=== PATIENT | male | born 1980 | race Two or more races ===

== ENCOUNTER 2017-08-09 10:51 | Outpatient (CLI) | payer OTHER | END 2017-08-09 11:09 | disposition home or self-care (01) | LOC: RAD 10:51 | DX: M54.5 Low back pain (principal); M25.572 Pain in left ankle and joints of left foot; M25.571 Pain in right ankle and joints of right foot; M72.2 Plantar fascial fibromatosis; M54.2 Cervicalgia; M25.562 Pain in left knee; M25.561 Pain in right knee | CPT/HCPCS: 73718; 73721 ==